=== PATIENT | male | born 1985 | race Caucasian/White ===

== ENCOUNTER 2024-02-04 23:36 | Emergency (ER) | payer SELFPAY ==
[~2024-02-04] VITALS: Ht 190.5 cm; Wt 72.6 kg
== END 2024-02-05 00:38 | disposition home or self-care (01) ==
LOC: ER 23:36
DX: S20.211A Contusion of right front wall of thorax, initial encounter (principal); X50.9XXA Other and unspecified overexertion or strenuous movements or postures, initial encounter
CPT/HCPCS: 71101; 99283-25